=== PATIENT | male | born 1960 | race African-American/Black ===

== ENCOUNTER 2023-07-12 10:55 | Emergency (ER) | payer MEDICAID ==
[~2023-07-12] VITALS: Ht 182.9 cm; Wt 73.0 kg
[2023-07-12 10:57] VITALS: O2SAT 99
[2023-07-12 11:31] LABS: HEMATOCRIT. 44.9 % (42.0-52.0); HEMOGLOBIN. 14.6 g/dL (14.0-18.0); MEAN CORPUSCULAR HEMOGLOBIN 29.5 pg (28.0-32.0); MEAN CORPUSCULAR HGB CONC 32.5 g/dL (31.0-37.0); MEAN CORPUSCULAR VOLUME 90.7 fL (80.0-94.0); MEAN PLATELET VOLUME 8.8 fl (7.4-10.4); PLATELET 358 x1000/uL (130-400); RED BLOOD CELL COUNT 4.95 mill/uL (4.7-6.1); RED CELL DISTRIBUTION WIDTH 14.4 % (11.6-14.6); WHITE BLOOD COUNT 7.6 x1000/uL (4.5-11.0)
[2023-07-12 11:35] LABS: CHLORIDE 105 mEq/L (98-107); DIFFERENTIAL COMMENT 1; POTASSIUM 4.4 mEq/L (3.5-5.1); SODIUM 138 mEq/L (136-145)
[2023-07-12 11:36] LABS: CARBON DIOXIDE 27 mEq/L (21-32)
[2023-07-12 11:37] LABS: CALCIUM 9.3 mg/dL (8.7-10.4)
[2023-07-12 11:41] LABS: GLUCOSE 109 mg/dL (70-105)
[2023-07-12 11:42] LABS: UREA NITROGEN BLOOD 14 mg/dL (9-23)
[2023-07-12 11:43] LABS: ALANINE AMINOTRANSFERASE 25 IU/L (10-49); ALBUMIN 4.4 g/dL (3.2-4.8); ASPARTATE AMINOTRANSFERASE 31 IU/L (<34)
[2023-07-12 11:44] LABS: BILIRUBIN TOTAL 1.9 mg/dL (0.1-1.0); PROTEIN TOTAL 7.9 g/dL (6.0-8.3)
[2023-07-12 11:55] LABS: PLATELET ESTIMATE NORMAL
[2023-07-12] MEDS ORDERED: KETOROLAC 30MG/ML VIAL IV ONE (12:15)
[2023-07-12] MEDS ORDERED: SODIUM CHLORIDE 0.9% 1,000 ML IV ONE (12:15)
[2023-07-12] MEDS ORDERED: ONDANSETRON HCL 4MG/2ML INJ IV ONE (12:15)
[2023-07-12] MEDS ORDERED: FAMOTIDINE 20MG/2ML VIAL IV ONE (12:15)
[2023-07-12 12:28] LABS: TROPONIN I HIGH SENSITIVITY 5 ng/L (3.0-53)
[2023-07-12] MEDS: KETOROLAC 60MG/2ML VIAL IM ONE (12:36)
[2023-07-12] MEDS: FAMOTIDINE 20MG TABLET PO ONE (12:38)
[2023-07-12] MEDS: MAGNESIUM/ALUMINUM HYDROXIDE/SIMETHICONE 30ML UDC PO ONE (12:38)
[2023-07-12] MEDS: ONDANSETRON 4MG ODT PO ONE (12:38)
[2023-07-12 13:48] VITALS: BP 125/74; PULSE 98; RESP 16; TEMP 98.7
== END 2023-07-12 13:50 | disposition home or self-care (01) ==
LOC: ER 11:06
DX: K52.89 Other specified noninfective gastroenteritis and colitis (principal)
CPT/HCPCS: 99284; 80053; 83690; 85025; 84484; 36415; 96372; Q0162; J1885; J7030

== ENCOUNTER 2024-01-24 00:23 | Emergency (ER) | payer MEDICAID ==
[~2024-01-24] VITALS: Ht 182.9 cm; Wt 75.0 kg
[2024-01-24 00:36] VITALS: O2SAT 98
[2024-01-24] MEDS: ACETAMINOPHEN 325MG TABLET PO ONE (01:00)
[2024-01-24 01:09] LABS: BASOPHILS % 0.7 % (0.0-2.0); EOSINOPHILS % 3.5 % (0.0-5.0); HEMATOCRIT. 41.8 % (42.0-52.0); HEMOGLOBIN. 13.8 g/dL (14.0-18.0); LYMPHOCYTES % 20.9 % (20.0-50.0); MEAN CORPUSCULAR HEMOGLOBIN 29.9 pg (28.0-32.0); MEAN CORPUSCULAR VOLUME 90.5 fL (80.0-94.0); MEAN PLATELET VOLUME 9.1 fl (7.4-10.4); MONOCYTES % 11.4 % (2.0-8.0); NEUTROPHILS % 63.5 % (40.0-76.0); PLATELET 302 x1000/uL (130-400); RED BLOOD CELL COUNT 4.61 mill/uL (4.7-6.1); WHITE BLOOD COUNT 4.6 x1000/uL (4.5-11.0)
[2024-01-24 01:16] LABS: CHLORIDE 104 mEq/L (98-107); POTASSIUM 4.2 mEq/L (3.5-5.1); SODIUM 139 mEq/L (136-145)
[2024-01-24 01:17] LABS: CALCIUM 9.5 mg/dL (8.7-10.4); CARBON DIOXIDE 33 mEq/L (21-32)
[2024-01-24 01:22] LABS: GLUCOSE 100 mg/dL (70-105)
[2024-01-24 01:23] LABS: UREA NITROGEN BLOOD 14 mg/dL (9-23)
[2024-01-24 01:25] LABS: PHOSPHORUS 3.8 mg/dL (2.5-4.9)
[2024-01-24] MEDS ORDERED: ACET-2708 MT (02:42)
[2024-01-24 03:00] VITALS: BP 148/81; PULSE 77; RESP 16; TEMP 36.55848; O2SAT 99
== END 2024-01-24 03:36 | disposition home or self-care (01) ==
LOC: ER 00:23
DX: M71.21 Synovial cyst of popliteal space [Baker], right knee (principal); I10 Essential (primary) hypertension
CPT/HCPCS: 36415; 80048; 83735; 84100; 85025; 93971; 99284

== ENCOUNTER 2024-01-30 21:50 | Emergency (ER) | payer MEDICAID ==
[~2024-01-30] VITALS: Ht 185.4 cm; Wt 83.5 kg
[~2024-01-30 21:50] MED LIST: ACET-2708 MT
[2024-01-30 21:54] VITALS: O2SAT 98
[2024-01-30 22:40] VITALS: BP 145/86; PULSE 77; RESP 18; TEMP 36.94740; O2SAT 99
== END 2024-01-30 22:40 | disposition home or self-care (01) ==
LOC: ER 21:50
DX: S61.214A Laceration without foreign body of right ring finger without damage to nail, initial encounter (principal); Z98.890 Other specified postprocedural states; X58.XXXA Exposure to other specified factors, initial encounter; Y93.89 Activity, other specified; Y92.89 Other specified places as the place of occurrence of the external cause; Y99.8 Other external cause status
CPT/HCPCS: 99281

== ENCOUNTER 2024-05-29 06:39 | Emergency (ER) | payer MEDICAID ==
[2024-05-29 06:57] VITALS: PULSE 70; RESP 20; O2SAT 98
[2024-05-29] MEDS ORDERED: ACET-2708 MT (09:03)
== END 2024-05-29 09:12 | disposition home or self-care (01) ==
LOC: ER 06:39
DX: M79.671 Pain in right foot (principal)
CPT/HCPCS: 73620; 99283